=== PATIENT | male | born 1980 ===

== ENCOUNTER 2025-04-13 13:32 | Outpatient (REF) | payer MEDICAID, SELFPAY ==
[2025-04-13 15:44] LABS: Abs Immature Grans 0.01 10^3/uL (0.0-0.06); HCT 43.0 % (40.0-50.0); HGB 14.3 g/dL (13.5-17.5); Immature Grans % 0.1 %; MCH 28.2 pg (27.0-33.0); MCHC 33.3 % (32.0-36.0); MCV 85 fL (80-95); MPV 10.3 fL (8.0-11.0); Platelet Count 218 10^3/uL (130-400); RBC 5.07 10^6/uL (4.36-5.78); RDW 12.3 % (11.8-14.1); RDW-SD 37.2 fL; WBC 7.14 10^3/uL (4.4-10.8)
[2025-04-13 16:49] LABS: ALT 68 U/L (16-63); AST 33 U/L (15-37); Albumin 4.3 g/dL (3.4-5.0); Alkaline Phosphatase 63 U/L (46-116); Anion Gap 10.3 mmol/L (3-11); BUN 13 mg/dL (7-18); Bilirubin, Total 1.3 mg/dL (0.2-1.0); CO2 27.7 mmol/L (21.0-32.0); Calcium 9.5 mg/dL (8.5-10.1); Chloride 102 mmol/L (98-107); Estimated GFR 76.95 (mL/min/1.73m2); Glucose 95 mg/dL (74-106); LDL CHOLESTEROL 188 mg/dL (<100); Potassium 4.0 mmol/L (3.5-5.1); Sodium 140 mmol/L (136-145); TSH (W/Ref FT4) 1.25 uIU/mL (0.36-3.74); Total Protein 7.8 g/dL (6.4-8.2)
[2025-04-24 08:40] LABS: Testosterone, Free 8.69 ng/dL (4.46-17.1)
== END 2025-04-13 13:33 | disposition home or self-care (01) ==
LOC: NCHCN 13:32
PROVIDERS: PCP Family Medicine; Visit Provider Family Medicine
DX: Z00.00 Encounter for general adult medical examination without abnormal findings (principal); I10 Essential (primary) hypertension; R53.82 Chronic fatigue, unspecified
CPT/HCPCS: 80053; 83721; 84402; 84403; 84443; 85025